=== PATIENT | female | born 1980 | race Caucasian/White ===

== ENCOUNTER 2020-05-23 03:27 | Emergency (ER) | payer OTHER ==
[~2020-05-23] VITALS: Ht 172.7 cm; Wt 72.6 kg
[~2020-05-23 03:27] MED LIST: Augmentin 875-1 EACH PO; Percocet 10-321 EACH PO; Zofran Odt4 MG SL
== END 2020-05-23 04:19 | disposition home or self-care (01) ==
LOC: ER 03:27
DX: L23.7 Allergic contact dermatitis due to plants, except food (principal); Z88.2 Allergy status to sulfonamides; Z87.891 Personal history of nicotine dependence
CPT/HCPCS: 96372; 99283-25; J3301

== ENCOUNTER 2021-06-15 21:27 | Emergency (ER) | payer OTHER ==
[~2021-06-15] VITALS: Ht 172.7 cm; Wt 72.6 kg
[2021-06-15] MEDS ORDERED: Premarin0.3 MG PO (21:58)
[2021-06-15] MEDS ORDERED: Vibramycin100 MG PO (23:48)
== END 2021-06-15 23:59 | disposition home or self-care (01) ==
LOC: ER 21:27
DX: L02.411 Cutaneous abscess of right axilla (principal); Z88.2 Allergy status to sulfonamides
CPT/HCPCS: 99283; A9270

== ENCOUNTER → 2021-10-12 | Outpatient (CLI) | payer OTHER ==
[~2021-10-12] MED LIST changes: +Premarin0.3 MG PO; +Vibramycin100 MG PO
== END | disposition home or self-care (01) ==
LOC: LAB SHORT 10:38 → LAB 10:38
DX: L08.9 Local infection of the skin and subcutaneous tissue, unspecified (principal)
CPT/HCPCS: 87070; 87077; 87147; 87186; 87205

== ENCOUNTER 2024-02-01 17:19 | Emergency (ER) | payer OTHER ==
[~2024-02-01] VITALS: Ht 172.7 cm; Wt 86.2 kg
[2024-02-01] MEDS ORDERED: Prochlorperazine Edisylate 10 mg Vial IV ONE (18:30)
[2024-02-01] MEDS ORDERED: Acetaminophen 500 MG Tab PO ONE (18:30)
[2024-02-01] MEDS ORDERED: Ketorolac Tromethamine 15mg Vial IV ONE (18:30)
[2024-02-01] MEDS ORDERED: DiphenhydrAMINE HCl 50 MG/ML 1ML Vial IV ONE (18:30)
[2024-02-01 18:34] LABS: BASOPHILS ABSOLUTE AUTO 0.04 K/mm3 (0.00-0.23); BASOPHILS PERCENT AUTO 0 % (0-2); EOSINOPHILS ABSOLUTE AUTO 0.24 K/mm3 (0.00-0.68); EOSINOPHILS PERCENT AUTO 3 % (0-6); Hematocrit 41.5 % (33.0-51.0); Hemoglobin 13.7 g/dL (11.5-16.0); IMMATURE GRAN ABSOLUTE AUTO 0.02 K/mm3 (0.00-0.10); IMMATURE GRAN PERCENT AUTO 0 % (0-1); LYMPHOCYTES PERCENT AUTO 34 % (21-46); MONOCYTES ABSOLUTE AUTO 0.59 K/mm3 (0.16-1.47); MONOCYTES PERCENT AUTO 7 % (4-13); Mean Corpuscular Volume 85 fL (80-100); Mean Platelet Volume 9.2 fL (9.1-12.4); NEUTROPHILS ABSOLUTE AUTO 5.04 K/mm3 (1.96-9.15); NEUTROPHILS PERCENT AUTO 56 % (41-73); Platelet Count 347 K/mm3 (150-400); RDW Coefficient Variation 12.9 % (11.7-14.2); RDW Standard Deviation 39.6 fL (35.1-46.3); Red Blood Cell Count 4.89 M/mm3 (3.80-5.20); White Blood Cell Count 9.03 K/mm3 (4.00-11.30)
[2024-02-01 18:52] LABS: Albumin, Blood 3.7 g/dL (3.4-5.0); Albumin/Globulin Ratio 1.1 (0.8-1.8); Bilirubin, Total 0.3 mg/dL (0.1-1.0); Bun/Creatinine Ratio 14.7 (12.0-20.0); Calcium, Blood 9.2 mg/dL (8.5-10.1); Creatinine, Blood 0.75 mg/dL (0.40-1.00); Globulin, Blood 3.4 g/dL (2.2-4.0); Phosphorus, Blood 3.3 mg/dL (2.5-4.9); Total Protein, Blood 7.1 g/dL (6.4-8.2)
[2024-02-01 19:15] VITALS: BP 132/98
== END 2024-02-01 20:22 | disposition home or self-care (01) ==
LOC: ER 17:19
PROVIDERS: Student in an Organized Health Care Education/Training Program
DX: G43.909 Migraine, unspecified, not intractable, without status migrainosus (principal); I10 Essential (primary) hypertension; Z87.891 Personal history of nicotine dependence; Z88.2 Allergy status to sulfonamides; Z79.3 Long term (current) use of hormonal contraceptives
CPT/HCPCS: 70450; 80053; 83735; 84100; 84703; 85025; 93005; 93010; 96374; 96375; 99284-25; A9270; J0780; J1200; J1885

== ENCOUNTER → 2024-05-03 | Outpatient (CLI) | payer OTHER | END | disposition home or self-care (01) | LOC: LAB 10:36 → LAB SHORT 10:36 | DX: N39.0 Urinary tract infection, site not specified (principal) | CPT/HCPCS: 87077; 87086; 87186 ==